=== PATIENT | male | born 1950 | race Caucasian/White ===

== ENCOUNTER 2024-06-28 10:21 | Outpatient (CLI) | payer OTHER ==
[~2024-06-28 10:21] MED LIST: Magnevist 469MG/ML 20 ML VIAL ONE
== END 2024-06-28 10:22 | disposition home or self-care (01) ==
LOC: MRI 10:21
PROVIDERS: ATTEND Optometrist
DX: H53.461 Homonymous bilateral field defects, right side (principal); J32.4 Chronic pansinusitis
CPT/HCPCS: 70543; 70553; 76376